=== PATIENT | female | born 1960 | race African-American/Black ===

== ENCOUNTER 2016-12-19 20:46 | Emergency (ER) | payer MEDICARE, OTHER ==
[~2016-12-19] VITALS: Ht 170.2 cm; Wt 65.3 kg
[~2016-12-19 20:46] MED LIST: CEPHALEXIN500 MG ORAL; IBUPROFEN600 MG ORAL; IBUPROFEN600 MG PO; NORCO 10-325 T1 EACH ORAL; NORCO 10-325 T1 EACH PO; NORCO 5-325 TA1 EAC1 ORAL; NORCO 5-325 TA1 EACH ORAL; OCUFLOX5 ML BOTH EYES; PENICILLIN V P500 MG PO; TENORMIN50 MG ORAL; TRAMADOL HCL50 MG ORAL; VALIUM10 MG PO; VALIUM5 MG PO; VICODIN 5-5001 EACH PO
[2016-12-19 21:04] VITALS: BP 149/84
[2016-12-19] MEDS ORDERED: Norco 5mg/325mg tab ORAL ONE (21:15)
[2016-12-19] MEDS ORDERED: IBUPROFEN600 MG ORAL (21:56)
[2016-12-19] MEDS ORDERED: HYDROCODON-ACE1 EA15 ORAL (21:56)
--- NOTE | 2016-12-19 21:57 | Emergency Room Report ---
History of Present Illness General Chief Complaint: Pain Source: Patient Present Illness HPI This is a 56-year-old female with history of chronic back pain. She normally take [place] for her. She presents with chief complaint of right rib pain. 2 days ago she slipped and fell, hitting her right rib on some furniture. Since then she's been hurting. Worse with deep breath. She felt something sticking in that area. Denies any fever chills denies any nausea vomiting. Pain is 10 out of 10. No other complaint. Allergies: Coded Allergies: No Known Allergies (Verified , 04/10/07) Patient History Past Medical History: see triage record, old chart reviewed Past Surgical History: other Pertinent Family History: none Social History: Denies: smoking Now: No Immunizations: other Reviewed Nursing Documentation: PMH: Agreed, PSxH: Agreed Nursing Documentation-PMH Hx Cardiac Problems: No - sciatica Hx Hypertension: Yes Hx Neurological Problems: Yes - sciatica Review of Systems Eye: Denies: blurred vision, eye pain ENT: Denies: ear pain, nose congestion, throat swelling Respiratory: Denies: cough, shortness of breath Cardiovascular: Denies: chest pain, palpitations Gastrointestinal: Denies: abdominal pain, diarrhea, nausea, vomiting Musculoskeletal: Denies: back pain, joint pain Skin: Denies: rash Neurological: Denies: headache, numbness Endocrine: Denies: increased thirst, increased urine Hematologic/Lymphatic: Denies: easy bruising All Other Systems: negative except mentioned in HPI Physical Exam Vital Signs Date Time Temp Pulse Resp B/P Pulse Ox O2 Delivery O2 Flow Rate FiO2 12/19/16 20:50 97.9 90 18 149/84 100 Room Air vitals normal Sp02 EP Interpretation: reviewed, normal General Appearance: well appearing, no apparent distress, alert Head: normocephalic, atraumatic Eyes: bilateral eye EOMI, bilateral eye PERRL ENT: hearing grossly normal, normal pharynx Neck: full range of motion, supple, no meningismus Respiratory: lungs clear, normal breath sounds, other - Tender to palpation over the lateral right rib. No ecchymosis. Cardiovascular #1: regular rate, rhythm, no murmur Gastrointestinal: normal bowel sounds, non tender, no mass, no organomegaly, no bruit, non-distended Musculoskeletal: back normal, gait/station normal, normal range of motion Psychiatric: mood/affect normal Skin: warm/dry Medical Decision Making Diagnostic Impression: Primary Impression: Rib contusion Qualified Codes: S20.211A - Contusion of right front wall of thorax, initial encounter ER Course Patient present with a fall and rib contusion. Interestingly, she's been here for the same complaint before. See no evidence any fracture or pneumothorax. We'll discharge home. Other X-Ray Diagnostic Results Other X-Ray Diagnostic Results : X-Ray Ordered: Right rib x-rays Date: December 19, 2016 Time: 21:55 EP Interpretation: Yes Findings: no fractures, no dislocation, no soft tissue swelling Number of Views: 4 Last Vital Signs Date Time Temp Pulse Resp B/P Pulse Ox O2 Delivery O2 Flow Rate FiO2 12/19/16 20:50 97.9 90 18 149/84 100 Room Air Status: improved Disposition: HOME, SELF-CARE Condition: Stable Scripts Ibuprofen* (MOTRIN*) 600 Mg Tablet 600 MG ORAL THREE TIMES A DAY, #30 TAB 0 Refills Prov: MAR ALVARADO M.D. 12/19/16 Hydrocodone/Acetaminophen 5-325* (HYDROCODONE/ACETAMINOPHEN 5-325*) 1 Each Tablet 1 TAB ORAL Q6H Y for For Pain, #20 TAB 0 Refills Prov: MAR ALVARADO M.D. 12/19/16 Referrals: NOT CHOSEN IPA/,REFERRING (PCP) Additional Instructions: Followup with your DrDianna in 7 days. Return if symptom worsen. MAR ALVARADO M.D. December 19, 2016 21:57
[2016-12-19 22:00] VITALS: BP 146/86
[2016-12-19 22:02] VITALS: BP 146/86
--- NOTE | 2016-12-20 11:14 | Diagnostic Imaging Report ---
Indication: Trauma. Comparison: None Findings: 4 views of the right chest wall was obtained for evaluation of the ribs. Bony mineralization appears normal. There is no acute fracture identified. There is no soft tissue swelling demonstrated. The lung is essentially clear. The costophrenic angle is sharp. Other osseous structures visualized are unremarkable. Impression: Negative unilateral rib series
== END 2016-12-19 22:02 | disposition home or self-care (01) ==
LOC: EMR 21:43
DX: S20.211A Contusion of right front wall of thorax, initial encounter (principal); W01.0XXA Fall on same level from slipping, tripping and stumbling without subsequent striking against object, initial encounter; Y92.89 Other specified places as the place of occurrence of the external cause; I10 Essential (primary) hypertension
CPT/HCPCS: 99284

== ENCOUNTER 2018-01-28 12:09 | Emergency (ER) | payer MEDICARE, OTHER ==
[~2018-01-28] VITALS: Ht 165.1 cm; Wt 59.0 kg
[~2018-01-28 12:09] MED LIST changes: +HYDROCODON-ACE1 EA15 ORAL
--- NOTE | 2018-01-28 12:55 | Emergency Room Report ---
History of Present Illness General Chief Complaint: Lower Back Pain or Injury Present Illness HPI 57-year-old female patient presents to ER complaining of back pain since yesterday. Reports history of spinal stenosis in her low back. Reports has previously been seen by primary care provider and had MRI imaging done, states that she has never had surgery. Denies bowel or bladder incontinence. Denies other acute symptoms at this time. Reports pain radiates down her back to her legs bilaterally, states this is normal for her. Reports pain has been worse since yesterday when she moved suddenly when her dog jumped, denies fall or traumatic injury. Denies falling or hitting her head. Denies loss of consciousness. Denies fever, chest pain, shortness of breath. reports history of sciatica, states normally takes gabapentin and [place], is getting a new physicians is not gotten recent refill of medication. Allergies: Coded Allergies: No Known Allergies (Verified , 04/10/07) Patient History Past Medical History: see triage record Now: No Reviewed Nursing Documentation: PMH: Agreed; PSxH: Agreed Nursing Documentation-PMH Hx Cardiac Problems: No - sciatica Hx Hypertension: Yes Hx Neurological Problems: Yes - sciatica Review of Systems All Other Systems: negative except mentioned in HPI Physical Exam Vital Signs Date Time Temp Pulse Resp B/P (MAP) Pulse Ox O2 Delivery O2 Flow Rate FiO2 01/28/18 12:22 97.2 78 16 150/90 98 Room Air 97.2 Sp02 EP Interpretation: reviewed, normal General Appearance: well appearing, no apparent distress, alert, GCS 15, non- toxic Head: normocephalic, atraumatic Eyes: bilateral eye normal inspection, bilateral eye PERRL ENT: hearing grossly normal, normal pharynx, no angioedema, normal voice, uvula midline, moist mucus membranes Neck: full range of motion Respiratory: lungs clear, normal breath sounds, no rhonchi, no respiratory distress, no accessory muscle use, no wheezing, speaking full sentences Cardiovascular #1: normal inspection Musculoskeletal: back normal, digits/nails normal, gait/station normal, normal range of motion, no calf tenderness, Luana's Sign negative, tender - low back Neurologic: alert, oriented x3, responsive, motor strength/tone normal, SLR negative, sensory intact, cerebellar normal, normal gait, speech normal Skin: no rash Medical Decision Making PA Attestation Dr. Delarosa is my supervising Physician whom patient management has been discussed with. Diagnostic Impression: Primary Impression: Chronic back pain ER Course Pt presents to ED c/o back pain. DDX considered but are not limited to sprain, strain, cauda equina, stenosis, chronic back pain. Low suspicion for cauda equina, no bowel or bladder incontinence or retention. Denies urinary symptoms, does not require UA at this time. VITAL SIGNS are WNL, patient is afebrile Ordered pain medication. ER COURSE: NO recent injury, no focal neuro deficits, negative straight leg raise, does not require imaging at this time. Able to ambulate independently. Likely chronic pain exacerbation, will provide pain medication, lidocaine patch and muscle relaxant. Followup with pain management and/or PT. Request referral from PCP. Followup with PCP for further MRI and/or CT imaging as needed. DISCHARGE: -Rx provided for [place]. Cures reviewed. -Rx provided for Lidocaine patch -Rx provided for Robaxin. SE may cause drowsiness, do not take prior to drinking , driving, or operating [employer] machinery. At this time pt. is stable for d/c to home. At this time patient is resting comfortably, in no acute distress, nontoxic appearing, smiling and talking without difficulty. Will provide printed patient care instructions, and any necessary prescriptions. Patient instructed to follow with primary care provider for further treatment and referral as needed. Care plan and follow up instructions have been discussed with the patient prior to discharge. Patient reports understanding and agreement to treatment plan. Patient questions asked and answered. ER precautions given, patient instructed to return to ER immediately for any new or worsening of symptoms. - Please note that this Emergency Department Report was dictated using [employer] letterer technology software, occasionally this can lead to erroneous entry secondary to interpretation by the dictation equipment. Last Vital Signs Date Time Temp Pulse Resp B/P (MAP) Pulse Ox O2 Delivery O2 Flow Rate FiO2 01/28/18 12:22 97.2 78 16 150/90 98 Room Air 97.2 Disposition: HOME, SELF-CARE Condition: Stable Scripts Methocarbamol* (ROBAXIN*) 500 Mg Tablet 500 MG PO TID, #21 TAB 0 Refills Prov: Nael Moore P.A. 01/28/18 Lidocaine (Lidocaine) 1 Each Adh..patch 700 MG TP DAILY for 7 Days, #7 PATCH Prov: Nael Moore 01/28/18 Hydrocodone Bit/Acetaminophen 5-325* (NORCO 5-325*) 1 Each Tablet 1 TAB ORAL Q6H PRN for For Pain, #10 TAB 0 Refills Prov: Nael Moore 01/28/18 Patient Instructions: Back Pain, Adult Additional Instructions: Patient instructed to follow up with primary care provider at scheduled appointment and discuss further referral to pain management,ortho, and PT and further imaging at that time. Patient instructed on rest, ice and heat. Do not take medication prior to drinking, driving, or operating heavy machinery , may cause drowsiness. Take medications as directed. Patient questions asked and answered. ER precautions given, patient instructed to return to ER immediately for any new or worsening of symptoms. Nael Moore Jan 28, 2018 12:55
[2018-01-28] MEDS ORDERED: Methocarbamol 500mg tab ORAL ONE (13:00)
[2018-01-28] MEDS ORDERED: Norco 5mg/325mg tab ORAL ONE (13:00)
[2018-01-28] MEDS ORDERED: Ketorolac 30mg Inj IM ONE (13:00)
[2018-01-28] MEDS ORDERED: LIDOCAINE700 M1 TP (13:03)
[2018-01-28] MEDS ORDERED: NORCO 5-325 TA1 EACH ORAL (13:03)
[2018-01-28] MEDS ORDERED: ROBAXIN500 MG PO (13:03)
[2018-01-28 14:16] VITALS: BP 150/90
[2018-01-28 14:18] VITALS: BP 150/90
== END 2018-01-28 14:00 | disposition home or self-care (01) ==
LOC: EMR 13:32
DX: G89.29 Other chronic pain (principal); M54.40 Lumbago with sciatica, unspecified side; I10 Essential (primary) hypertension
CPT/HCPCS: 96372; 99284; J1885

== ENCOUNTER 2018-03-05 21:54 | Emergency (ER) | payer BC ==
[~2018-03-05] VITALS: Ht 170.2 cm; Wt 68.0 kg
[~2018-03-05 21:54] MED LIST changes: +LIDOCAINE700 M1 TP; +ROBAXIN500 MG PO
[2018-03-05] MEDS ORDERED: LISINOPRIL40 MG ORAL (22:05)
[2018-03-05] MEDS ORDERED: MS CONTIN15 MG ORAL (22:05)
[2018-03-05] MEDS ORDERED: NORCO 10-325 T1 EACH ORAL (22:05)
[2018-03-05] MEDS ORDERED: Morphine Sulfate 10mg/ml Inj IVP ONE (22:30)
[2018-03-05 22:50] VITALS: BP 155/79
--- NOTE | 2018-03-05 22:50 | Emergency Room Report ---
History of Present Illness General Chief Complaint: Abdominal Pain Source: Patient Present Illness HPI Is a 57-year-old female with history of chronic back pain for which she take [place]. She presents with chief complaint abdominal pain. His been ongoing for 2 weeks now. Getting worse. She has constipation which resolved with some laxative. Has nausea but no vomiting. She has a previous hysterectomy because of her fibroid. Pain is 10 out of 10. Has bloating. Nothing made it better. Nothing made it worse. No urinary complaint. Allergies: Coded Allergies: No Known Allergies (Verified , 04/10/07) Patient History Past Medical History: see triage record, old chart reviewed Past Surgical History: hysterectomy Pertinent Family History: none Social History: Denies: smoking Last Menstrual Period: n/a Now: No Immunizations: other Reviewed Nursing Documentation: PMH: Agreed; PSxH: Agreed Nursing Documentation-PMH Hx Cardiac Problems: No - sciatica, lumbar stenosis Hx Hypertension: Yes Hx Neurological Problems: Yes - sciatica Review of Systems Eye: Denies: eye pain, blurred vision ENT: Denies: ear pain, nose congestion, throat swelling Respiratory: Denies: cough, shortness of breath Cardiovascular: Denies: chest pain, palpitations Gastrointestinal: Reports: abdominal pain, nausea; Denies: diarrhea, vomiting Musculoskeletal: Denies: back pain, joint pain Skin: Denies: rash Neurological: Denies: headache, numbness Endocrine: Denies: increased thirst, increased urine Hematologic/Lymphatic: Denies: easy bruising All Other Systems: negative except mentioned in HPI Physical Exam Vital Signs Date Time Temp Pulse Resp B/P (MAP) Pulse Ox O2 Delivery O2 Flow Rate FiO2 03/05/18 21:59 98.6 77 16 174/74 98 Room Air 98.6 vitals with high blood pressure Sp02 EP Interpretation: reviewed, normal General Appearance: well appearing, no apparent distress, alert Head: normocephalic, atraumatic Eyes: bilateral eye PERRL, bilateral eye EOMI ENT: hearing grossly normal, normal pharynx Neck: full range of motion, supple, no meningismus Respiratory: chest non-tender, lungs clear, normal breath sounds Cardiovascular #1: regular rate, rhythm, no murmur Gastrointestinal: no mass, no organomegaly, no bruit, non-distended, tenderness - diffuse, decreased bowel sounds Musculoskeletal: back normal, gait/station normal, normal range of motion Psychiatric: mood/affect normal Skin: warm/dry Medical Decision Making Diagnostic Impression: Primary Impression: Abdominal pain Qualified Codes: R10.84 - Generalized abdominal pain Additional Impressions: Opiate dependence Qualified Codes: F11.20 - Opioid dependence, uncomplicated Cocaine abuse UTI (urinary tract infection) Qualified Codes: N30.00 - Acute cystitis without hematuria Anemia Qualified Codes: D64.9 - Anemia, unspecified ER Course Patient presents with abdominal pain. CT scan unremarkable. Her pain E be secondary to drug abuse and withdrawal. Could also be from constipation from her opiate dependency. No evidence of obstruction or acute abdomen. She felt better now. We'll discharge home. Lab Results Impression labs unremarkable CT/MRI/US Diagnostic Results CT/MRI/US Diagnostic Results : Imaging Test Ordered: CT abdomen and pelvis Impression no acute process per radiologist Last Vital Signs Date Time Temp Pulse Resp B/P (MAP) Pulse Ox O2 Delivery O2 Flow Rate FiO2 03/05/18 21:59 98.6 77 16 174/74 98 Room Air 98.6 Status: improved Disposition: HOME, SELF-CARE Condition: Stable Scripts Lactulose (LACTULOSE*) 20 Gm/30 Ml Solution 30 ML ORAL DAILY for 240 Days, ML 0 Refills Prov: MAR ALVARADO M.D. 03/05/18 Nitrofurantoin Monohyd/M-Cryst (Nitrofurantoin [place]-Mcr 100 mg) 100 Mg Capsule 100 MG ORAL Q12H, #14 CAP Prov: MAR ALVARADO M.D. 03/05/18 Patient Instructions: Abdominal Pain, Adult Additional Instructions: Follow-up with your DrDianna in 2 to 3 days. Return if symptom worsen. MAR ALVARADO M.D. Mar 05, 2018 22:49
[2018-03-05 23:04] LABS: APPEARANCE,URINE SLIGHTLY CLOUDY; BILIRUBIN, URINE NEGATIVE (NEGATIVE); COLOR,URINE PALE YELLOW; GLUCOSE, URINE (UA) NEGATIVE (NEGATIVE); KETONES,URINE NEGATIVE (NEGATIVE); LEUKOCYTE ESTERASE ,URINE 1+ (NEGATIVE); NITRITE,URINE NEGATIVE (NEGATIVE); PH,URINE 8 (4.5-8.0); PROTEIN,URINE NEGATIVE (NEGATIVE); UROBILINOGEN,URINE NORMAL MG/DL (0.0-1.0)
[2018-03-05 23:07] LABS: BASOPHILS % (AUTO) 0.6 % (0.0-2.0); EOSINOPHILS % (AUTO) 1.2 % (0.0-3.0); HEMATOCRIT 32.2 % (37.0-47.0); HEMOGLOBIN 10.5 G/DL (12.0-16.0); LYMPHOCYTES % (AUTO) 23.1 % (20.0-45.0); MEAN CORPUSCULAR VOLUME 82 FL (80-99); MONOCYTES % (AUTO) 4.9 % (1.0-10.0); NEUTROPHILS % (AUTO) 70.2 % (45.0-75.0); PLATELET COUNT 260 K/UL (150-450); RED CELL DISTRIBUTION WIDTH 13.3 % (11.6-14.8); WHITE BLOOD COUNT 8.2 K/UL (4.8-10.8)
[2018-03-05 23:12] LABS: ANION GAP 6 mmol/L (5-15); BLOOD UREA NITROGEN 12 mg/dL (7-18); CARBON DIOXIDE 30 MMOL/L (21-32); CHLORIDE 106 MMOL/L (98-107); CREATININE 0.9 MG/DL (0.55-1.30); SODIUM 142 MMOL/L (136-145)
[2018-03-05 23:17] LABS: ALANINE AMINOTRANSFERASE 17 U/L (12-78); ALBUMIN 3.3 G/DL (3.4-5.0); ALBUMIN/GLOBULIN RATIO 0.8 (1.0-2.7); ALKALINE PHOSPHATASE 84 U/L (46-116); ASPARTATE AMINO TRANSFERASE 11 U/L (15-37); BILIRUBIN,TOTAL 0.2 MG/DL (0.2-1.0)
[2018-03-05] MEDS ORDERED: LACTULOSE20 GM/301 ORAL (23:26)
[2018-03-05] MEDS ORDERED: MACROBID100 MG ORAL (23:26)
[2018-03-05] MEDS ORDERED: cefTRIAXone 1 GM in NS 55 ML IVPB ONE (23:30)
[2018-03-05 23:59] VITALS: BP 0/0
--- NOTE | 2018-03-06 10:47 | Diagnostic Imaging Report ---
Indication: Abdominal pain x2 weeks, nausea, vomiting, constipation Technique: Spiral acquisitions obtained through the abdomen and pelvis. No oral contrast utilized, per emergency room physician request No IV contrast utilized, per emergency room physician request.. Multiplanar reconstructions were generated. Total dose length product 714.19 mGycm. CTDIvol(s) 14.12 mGy. Dose reduction achieved using automated exposure control Comparison: 02/08/2008 Findings: The appendix is normal. There is a mild amount of retained fecal material but no colonic fecal distention. No evidence of diverticulosis or diverticulitis. There is a small amount of free pelvic fluid. No small bowel distention. No free intraperitoneal gas. Distal esophagus, stomach, duodenum are all unremarkable. There is a tiny fat-containing umbilical hernia. Lack of IV contrast limits assessment of the solid organs. The liver is mildly enlarged, unchanged from previous. Gallbladder, bile ducts, pancreas, spleen, adrenals, kidneys are unremarkable. No retroperitoneal or mesenteric mass or adenopathy. No pelvic mass or adenopathy. The included lung bases demonstrate minimal posterior dependent atelectatic changes, are otherwise clear. The bones demonstrate mild degenerative spondylosis changes. When compared to the prior exam, previously described gallbladder wall thickening is not evident currently Impression: Trace free cul-de-sac fluid, not physiologic in a postmenopausal female No acute abnormality otherwise Incidental findings as noted, including mild degenerative spondylosis, tiny fat-containing umbilical hernia, posterior dependent pulmonary parenchymal atelectatic changes This agrees with the preliminary interpretation provided overnight by [facility] teleradiology service. The CT scanner at [facility] is accredited by the [employer] and the scans are performed using protocols designed to limit radiation exposure to as low as reasonably achievable to attain images of sufficient resolution adequate for diagnostic evaluation.
== END 2018-03-05 23:59 | disposition home or self-care (01) ==
LOC: EMR 23:39
DX: N39.0 Urinary tract infection, site not specified (principal); D64.9 Anemia, unspecified; F11.20 Opioid dependence, uncomplicated
CPT/HCPCS: 36415; 74176; 80053; 80307; 81003; 83690; 85025; 87086; 96361; 96365; 96375; 99285; J0696; J2270; J2405

== ENCOUNTER 2018-07-28 20:53 | Emergency (ER) | payer BC ==
[~2018-07-28] VITALS: Ht 170.2 cm; Wt 66.7 kg
[~2018-07-28 20:53] MED LIST changes: +LACTULOSE20 GM/301 ORAL; +LISINOPRIL40 MG ORAL; +MACROBID100 MG ORAL; +MS CONTIN15 MG ORAL
[2018-07-28] MEDS ORDERED: GABAPENTIN800 MG ORAL (21:07)
[2018-07-28] MEDS ORDERED: IBUPROFEN600 MG ORAL (21:22)
--- NOTE | 2018-07-28 21:23 | Emergency Room Report ---
History of Present Illness General Chief Complaint: Lower Extremity Injury Source: Patient Present Illness HPI Is a 58-year-old female with history of chronic back pain. She presents with chief complaint of right knee pain. She said about a month ago she slipped and twisted her knee. She said she had a pop. She went to an ER and x-ray was negative. She was put on [place]. Now she said is still hurting. She has not follow-up with primary care Dr. wilson orthopedic doctor. She has a knee immobilizer and crutches already. Pain is 10 out of 10. Worse with walking. Diffuse in nature. No swelling. No fever chills but no nausea no vomiting. Denies any other complaint. Allergies: Coded Allergies: No Known Allergies (Verified , 04/10/07) Patient History Past Medical History: see triage record, old chart reviewed, HTN Past Surgical History: other Pertinent Family History: none Social History: Denies: smoking Last Menstrual Period: 2009 Now: No Immunizations: other Reviewed Nursing Documentation: PMH: Agreed; PSxH: Agreed Nursing Documentation-PMH Past Medical History: No History, Except For Hx Cardiac Problems: No - sciatica, lumbar stenosis Hx Hypertension: Yes Hx Neurological Problems: Yes - sciatica Review of Systems Eye: Denies: eye pain, blurred vision ENT: Denies: ear pain, nose congestion, throat swelling Respiratory: Denies: cough, shortness of breath Cardiovascular: Denies: chest pain, palpitations Gastrointestinal: Denies: abdominal pain, diarrhea, nausea, vomiting Musculoskeletal: Reports: joint pain; Denies: back pain Skin: Denies: rash Neurological: Denies: headache, numbness Endocrine: Denies: increased thirst, increased urine Hematologic/Lymphatic: Denies: easy bruising All Other Systems: negative except mentioned in HPI Physical Exam Vital Signs Date Time Temp Pulse Resp B/P (MAP) Pulse Ox O2 Delivery O2 Flow Rate FiO2 07/28/18 21:03 97.7 99 16 137/88 97 Room Air vitals normal Sp02 EP Interpretation: reviewed, normal General Appearance: well appearing, no apparent distress, alert Head: normocephalic, atraumatic Eyes: bilateral eye PERRL, bilateral eye EOMI ENT: hearing grossly normal, normal pharynx Neck: full range of motion, supple, no meningismus Respiratory: chest non-tender, lungs clear, normal breath sounds Cardiovascular #1: regular rate, rhythm, no murmur Gastrointestinal: normal bowel sounds, non tender, no mass, no organomegaly, no bruit, non-distended Musculoskeletal: back normal, gait/station normal, normal range of motion, other - Right knee: Patient with diffuse pain. No deformity. I barely touch her she screaming in pain. Yet, she walked in here without difficulty. Psychiatric: mood/affect normal Skin: warm/dry Medical Decision Making Diagnostic Impression: Primary Impression: Right knee pain Qualified Codes: M25.561 - Pain in right knee ER Course Patient with right knee pain. I see no effusion or deformity. She was walking without any difficulty. I suspect and opioid dependence/seeking behavior. On the [employer] system, she received 90 tablets of [place] #10/325 in May. She also has multiple prescriptions from different doctors was small amount of [facility] [place] was. I am uncomfortable for running narcotic in this patient. We'll write for anti-inflammatories since I see no acute process that require [place]. We'll discharge home. Patient will be referred to see orthopedic Dr. may need to get an MRI. Last Vital Signs Date Time Temp Pulse Resp B/P (MAP) Pulse Ox O2 Delivery O2 Flow Rate FiO2 07/28/18 21:03 97.7 99 16 137/88 97 Room Air Status: unchanged Disposition: HOME, SELF-CARE Condition: Stable Scripts Ibuprofen* (MOTRIN*) 600 Mg Tablet 600 MG ORAL THREE TIMES A DAY, #30 TAB 0 Refills Prov: Nestor Bennett MD 07/28/18 Patient Instructions: Knee Sprain Additional Instructions: Follow-up your primary care doctor within a week. You may need a referral to see orthopedic doctor. You may need an MRI. Return if symptom worsen. Nestor Bennett MD Jul 28, 2018 21:23
[2018-07-28] MEDS ORDERED: Norco 5mg/325mg tab ORAL ONE (21:30)
[2018-07-28 21:55] VITALS: BP 137/88
== END 2018-07-28 22:02 | disposition home or self-care (01) ==
LOC: EMR 21:25
DX: M25.561 Pain in right knee (principal); G89.29 Other chronic pain; M48.061 Spinal stenosis, lumbar region without neurogenic claudication; M54.30 Sciatica, unspecified side; I10 Essential (primary) hypertension
CPT/HCPCS: 99282